=== PATIENT | male | born 1960 | race Two or more races ===

== ENCOUNTER 2024-01-27 23:54 | Emergency (ER) | payer SELFPAY ==
[~2024-01-27] VITALS: Ht 170.2 cm; Wt 79.4 kg
[2024-01-28 00:01] VITALS: BP 122/78; TEMP 98.3; O2SAT 98
== END 2024-01-28 00:17 | disposition left against medical advice (07) ==
LOC: ER 23:56
DX: F10.129 Alcohol abuse with intoxication, unspecified (principal); Z53.21 Procedure and treatment not carried out due to patient leaving prior to being seen by health care provider